=== PATIENT | male | born 1945 | race Caucasian/White ===

== ENCOUNTER 2018-03-11 09:51 | Emergency (ER) | payer MEDICARE ==
[~2018-03-11] VITALS: Ht 172.7 cm; Wt 86.2 kg
[2018-03-11] MEDS ORDERED: FISH OIL (09:56)
--- NOTE | 2018-03-11 09:57 | NUR ---
pt is in room #2a. dr Salinas evaluated the pt.
[2018-03-11] MEDS ORDERED: PHENYLEPHRINE 1% (EXTRA STR) NASAL SPRAY NS ONE ×2 (10:12→11:15)
[2018-03-11] MEDS ORDERED: METOPROLOL TARTRATE 5 MG/5 ML VIAL IVP ONE ×2 (10:30→10:36)
[2018-03-11 10:35] VITALS: BP 192/101
--- NOTE | 2018-03-11 11:05 | NUR ---
pt become diaphoretic and had syncopy epizode. dr Salinas was called to the pt's bed. rapid response team came. pt was medicated according to er md orders. pt stated he feels better now . pt can speak in full sentences and muve all four extremities without limitations, a/o x 4. pt's at the bedside. continue to monitor the pt.
[2018-03-11 11:07] LABS: BASOPHILS % (AUTO) 0.4 % (0.0-2.0); EOSINOPHILS # (AUTO) 0.1 K/uL (0.0-0.7); EOSINOPHILS % (AUTO) 0.8 % (0.0-7.0); HEMATOCRIT 40.1 % (36.7-47.1); LYMPHOCYTES # (AUTO) 0.9 K/uL (20.0-40.0); LYMPHOCYTES % (AUTO) 8.7 % (20.5-51.5); MEAN CORPUSCULAR HEMOGLOBIN 31.6 uug (23.8-33.4); MEAN CORPUSCULAR HGB CONC 35 g/dL (32.5-36.3); MEAN CORPUSCULAR VOLUME 90.5 fL (73.0-96.2); MONOCYTES # (AUTO) 0.8 K/uL (2.0-10.0); NEUTROPHILS # (AUTO) 9.1 K/uL (1.8-8.9); NEUTROPHILS % (AUTO) 83.1 % (38.5-71.5); PLATELET COUNT (AUTO) 257 K/uL (152-348); RED BLOOD CELL COUNT(AUTO) 4.43 MIL/uL (4.06-5.63); WHITE BLOOD COUNT (AUTO) 10.9 K/uL (3.6-10.2)
[2018-03-11] MEDS ORDERED: IV NS 1000 ML 1,000 ML IV ONE ×2 (11:15→14:45)
[2018-03-11] MEDS ORDERED: BENZOCAINE 20% TOPICAL SPRAY 59.2 ML MM ONE (11:15)
[2018-03-11 11:17] LABS: CREATININE 1.2 mg/dL (0.6-1.3); POTASSIUM 4.7 mmol/L (3.5-5.1)
[2018-03-11] MEDS ORDERED: ATROPINE SULFATE 1 MG/10 ML DISP.SYRIN IV ONE ×2 (11:22→14:44)
[2018-03-11 11:33] LABS: BILIRUBIN,TOTAL 0.5 mg/dL (0.2-1.0); TOTAL PROTEIN, SERUM 7.2 g/dL (6.4-8.2)
--- NOTE | 2018-03-11 12:16 | NUR ---
Call placed to Dr. Pringle (ENT), message left for return call.
--- NOTE | 2018-03-11 13:27 | NUR ---
[facility] WAS CALLED BY ANDER FUENTES. TALKED TO FANNY ABOUT PT'S TRANSFER. FACE SHEET WAS FAXED TO [place] [facility] [place].
[2018-03-11 14:23] LABS: BASOPHILS % (AUTO) 0.4 % (0.0-2.0); EOSINOPHILS % (AUTO) 0.1 % (0.0-7.0); HEMATOCRIT 38.3 % (36.7-47.1); HEMOGLOBIN 13.2 g/dL (12.5-16.3); LYMPHOCYTES # (AUTO) 0.8 K/uL (20.0-40.0); LYMPHOCYTES % (AUTO) 7.4 % (20.5-51.5); MEAN CORPUSCULAR HEMOGLOBIN 31.2 uug (23.8-33.4); MEAN CORPUSCULAR HGB CONC 34 g/dL (32.5-36.3); MEAN CORPUSCULAR VOLUME 90.7 fL (73.0-96.2); MONOCYTES # (AUTO) 0.4 K/uL (2.0-10.0); MONOCYTES % (AUTO) 3.9 % (0.0-11.0); NEUTROPHILS # (AUTO) 9.5 K/uL (1.8-8.9); NEUTROPHILS % (AUTO) 88.2 % (38.5-71.5); PLATELET COUNT (AUTO) 245 K/uL (152-348); RED BLOOD CELL COUNT(AUTO) 4.22 MIL/uL (4.06-5.63); WHITE BLOOD COUNT (AUTO) 10.8 K/uL (3.6-10.2)
[2018-03-11] MEDS ORDERED: ATROPINE SULFATE 1 MG/10 ML DISP.SYRIN ONE (14:43)
--- NOTE | 2018-03-11 14:52 | NUR ---
AICHA SILVER TRIED TO CHECK PT's ORTHOSTATIC V/S. PT HAD SYNCOOPY EOIZODE. DR BOLIVAR EVALUATED THE PT. PT WAS MEDICATED ACCORDING TO ER MD ORDERS. CONTINUE TO MONITOR THE PT.
[2018-03-11 15:03] LABS: BILIRUBIN,TOTAL 0.6 mg/dL (0.2-1.0); CREATININE 1.1 mg/dL (0.6-1.3); TOTAL PROTEIN, SERUM 7.1 g/dL (6.4-8.2)
--- NOTE | 2018-03-11 15:04 | NUR ---
ENT MD FROM [facility] TALKED TO DR BOLIVAR OVER THE PHONE ABOUT PT'S TRANSFER. WAITING FOR CALL FROM ACCEPTING HOSPITALIST .
--- NOTE | 2018-03-11 16:46 | NUR ---
[facility] REPMayra MONTANA CALLED TO REQUEST PT'S FACE SHEET TO FAX. FACE SHEET WAS FAXED TO [facility], FAX NUMBER [phone].
--- NOTE | 2018-03-11 16:46 | NUR ---
DR BOLIVAR TALKED TO DR RAPHAEL FROM [facility] ABOUT PT TRANSFER.
--- NOTE | 2018-03-11 16:55 | NUR ---
spoke with Maribell Keyes via telephone.
--- NOTE | 2018-03-11 17:02 | NUR ---
Received a telephone call from Dunia at [facility] who stated she spoke with her campus administrator on-call and she will attempt to get a bed for the pt for transfer. Dunia to call back with further information.
--- NOTE | 2018-03-11 17:20 | NUR ---
DR BOLIVAR TALKED TO DR CARTER. DR CARTER ACCEPTING PT TO [facility]. RN ASSESSMENT IS GOING TO CALL US WITH ROOM INFORMATION AND PHONE NUMBER FOR REPORT.
--- NOTE | 2018-03-11 17:43 | NUR ---
PT IS GOING TO BE TRANSFERED TO [facility] CV[facility] ROOM #116 [facility]. [place] IS [address] CARTER IS ADMITING
--- NOTE | 2018-03-11 19:05 | NUR ---
REPORT WAS GIVEN TO ANTOINE LEDBETTER.
--- NOTE | 2018-03-11 19:25 | NUR ---
PT WAS TRANSFERED TO [facility] ROOM [address] REPORT WAS GIVEN TO AMBULANCE RN.
== END 2018-03-11 19:31 | disposition short-term general hospital (02) ==
LOC: ER 09:51
DX: R00.1 Bradycardia, unspecified (principal); R04.0 Epistaxis; J32.9 Chronic sinusitis, unspecified; Z79.899 Other long term (current) drug therapy
CPT/HCPCS: 30905; 36415; 70450; 71045; 80053 ×2; 82550; 84484 ×2; 85025 ×2; 85730; 93005; 96374; 96375; 96376; 99291; 99292; A4217; A4663; J0461; J3490; J7030; 70030-TC